=== PATIENT | female | born 1995 ===

== ENCOUNTER 2020-02-06 10:58 | Emergency (ER) | payer OTHER, BC, SELFPAY ==
[2020-02-06 11:00] VITALS: BP 172/94; PULSE 98; RESP 20; TEMP 36.4; O2SAT 97; BMI 37.0
--- NOTE | 2020-02-06 11:12 | ED_ITS ---
HPI - Abdominal Pain General Chief Complaint: Abdominal Pain Stated Complaint: cramping from food x1 day Time Seen by Provider: 02/06/20 10:58 Source: patient Mode of arrival: Ambulatory Limitations: no limitations History of Present Illness HPI narrative: 24F non smoker with non contributory medical history presents with worsening lower abdominal pain. She was eating a salad at work yesterday and cut the inside of her mouth and then swallowed a mouthful. She then examined her food and found a large piece of broken glass and then found out there was a glass item that broke in the kitchen and they thought they found all of the glass. She denies any vomiting but is feeling nauseated. She has sharp and stabbing lower abdominal and denies the passage of any blood in her stool. She denies any fever or chills. She denies any chance or COVID-19 She last ate last evening MD complaint: abdominal pain Onset (ago): day(s) Pain Consistency: intermittent Location: suprapubic Severity: severe Quality: cramping and stabbing Radiation: none Migration to: no migration Relieving factors: nothing Exacerbating factors: nothing Associated symptoms: nausea Review of Systems Constitutional Constitutional: Denies chills, Denies fatigue, Denies fever(s), Denies frequent falls, Denies lethargy and Denies weakness Eyes Eyes: Denies change in vision, Denies eye discharge, Denies irritation and Denies loss of vision ENT Ears, Nose, Mouth, and Throat: Denies change in voice, Denies dizziness, Denies neck pain, Denies sore throat and Denies throat swelling Cardiovascular Cardiovascular: Denies chest pain, Denies irregular heart rhythm, Denies lightheadedness, Denies palpitations, Denies dyspnea, Denies dyspnea on exertion and Denies orthopnea Respiratory Respiratory: Denies cough, Denies dyspnea, Denies dyspnea on exertion and Denies wheezing Gastrointestinal Gastrointestinal: Reports abdominal pain, Denies change in bowel habits, Denies diarrhea, Denies nausea and Denies vomiting Musculoskeletal Musculoskeletal: Denies neck pain and Denies numbness Integumentary/Breasts Skin/Breast: Denies pruritus, Denies erythema, Denies rash and Denies wounds Neurologic Neurologic: Denies behavioral changes, Denies confusion, Denies dizziness, Denies frequent falls, Denies loss of vision, Denies numbness and Denies weakness Psychiatric Psychiatric: Denies anxiety, Denies behavioral changes, Denies confusion, Denies depression, Denies homicidal ideation and Denies suicidal ideation Endocrine Endocrine: Denies fatigue, Denies flushing and Denies palpitations Hematologic/Lymphatic Hematologic/Lymphatic: Denies easy bruising Allergic/Immunologic Allergic/Immunologic: Denies urticaria, Denies throat swelling and Denies wheezing Patient History Social History Smoking Status: Never smoker Smoking Status: Never smoker alcohol intake frequency: 0-2 drinks per day Substance Use Type: does not use Exam Narrative Exam Narrative: GENERAL: [24] year old patient appears stated age. Well-nou rished, well-developed patient, in mild distress. Anxious, crying HEAD: Atraumatic. Normocephalic. EYES: Pupils equal round and reactive. Extraocular motions intact. No scleral icterus. No injection or drainage. ENT: Nose without bleeding, purulent drainage. Throat without erythema, tonsillar hypertrophy or exudate. Airway patent. NECK: Trachea midline. Non tender CARDIOVASCULAR: Regular rate and rhythm without murmurs, gallops, or rubs. RESPIRATORY: Clear to auscultation. Breath sounds equal bilaterally. No wheezes, rales, or rhonchi. GASTROINTESTINAL: Abdomen soft, mild tenderness, nondistended. EXTREMITIES: No edema or joint tenderness. BACK: Nontender without deformity or crepitance. No flank tenderness. NEURO: AOx3. SKIN: No rash or erythema of visible areas Initial Vital Signs Initial Vital Signs: Vital Signs Temperature 97.5 F L 02/06/20 11:00 Pulse Rate 98 H 02/06/20 11:00 Respiratory Rate 20 02/06/20 11:00 Blood Pressure 172/94 H 02/06/20 11:00 Pulse Oximetry 97 02/06/20 11:00 Course Orders Ordered: ED Orders 02/06/20 12:02 Basic Metabolic Panel Stat Complete Blood Count AUTO DIFF Stat 02/06/20 12:16 CT abdomen pelvis w con Stat Sodium Chloride (Normal Saline 0.9%) 1,000 mls @ 125 mls/hr IV CONT VAUGHN Last Admin: 02/06/20 12:50 Dose: 125 mls/hr Documented by: HOLDEN Consultations Consultation #1: early call to Dr. Cabral (surgery) to discuss imaging. He requests CT. Call to Radiology (no oral contrast, but IV will be helpful) Vital Signs Vital signs: Vital Signs - 8 hr 02/06/20 11:00 02/06/20 12:23 02/06/20 14:25 Temperature 97.5 F L Pulse Rate 98 H 86 Respiratory Rate 20 18 Blood Pressure 172/94 H 137/67 116/74 Pulse Oximetry 97 100 MDM - Abdominal Pain Lab Data Result diagrams: 02/06/20 12:02 02/06/20 12:02 Labs: Lab Results 02/06/20 02/06/20 Range/Units 12:02 12:02 WBC 10.0 (4.5-11.0) X10^3/uL RBC 4.77 (4.0-5.2) X10^6/uL Hgb 14.3 (12.0-16.0) g/dL Hct 42.2 (36-46) % MCV 88.5 (80-100) fL MCH 30.0 (26-34) PG MCHC 33.9 (30-36) % RDW 13.0 (11.6-14.8) % Plt Count 322 (150-400) X10^3/uL Neut % (Auto) 63.1 (50-75) % Lymph % (Auto) 31.0 (25-40) % [place] % (Auto) 4.4 (3-14) % Eos % (Auto) 0.9 L (2-4) % Baso % (Auto) 0.6 (0-2) % Neut # (Auto) 6300 (6993-9070) /uL Lymph # (Auto) 3100 (4928-2191) /uL [place] # (Auto) 400 (0-900) /uL Eos # (Auto) 100 (0-450) /uL Baso # (Auto) 100 (0-100) /uL Sodium 137 (137-145) mmol/L Potassium 4.1 (3.4-5.1) mmol/L Chloride 104 (98-107) mmol/L Carbon Dioxide 24 (22-32) mmol/L BUN 13 (7-17) mg/dL Creatinine 0.67 (0.52-1.04) mg/dL Estimated GFR > 60.0 (>60) mL/min BUN/Creatinine Ratio 19.4 (6-22) Glucose 85 (70-100) mg/dL Calcium 9.8 (8.4-10.2) mg/dL Point of care testing: Point of Care Testing Test Results Negative Imaging Data CT scan - abdomen/pelvis: Radiologist's Impression: Drake Polo 24 F [address] [address] [address] Scan Report Signed Patient: Drake PoloMR#: [id number] : 1995Acct:[id number] Age/Sex: 24 / FDate of Service: 02/06/20 Loc: ED Accession Number: [id number] Procedure: CT abdomen pelvis w con Ordering Provider: Pako Yuan D.O. PROCEDURE: CT ABDOMEN PELVIS W CON INDICATIONS: severe abdominal cramping, swallowed chard of glass TECHNIQUE: After the administration of intravenous contrast, 5 mm thick sections acquired from the diaphragm to the symphysis. 5 mm coronal and sagittal reformats were acquired. For radiation dose reduction, the following was used: automated exposure control, adjustment of mA and/or kV according to patient size. COMPARISON: None. FINDINGS: Image quality: Excellent. ABDOMEN: Lung bases: Lung bases are clear. Heart size is normal. Solid organs: Liver is normal in size and enhancement. Gallbladder appears normal. Biliary system is non dilated. Pancreas enhances normally. Spleen is normal in size and enhancement. No adrenal nodules. Kidneys demonstrate normal size and enha ncement, without hydronephrosis. Peritoneum and bowel: Bowel loops demonstrate normal wall thickness and caliber. No free fluid or air. Nodes and vessels: No retroperitoneal or mesenteric adenopathy by size criteria. Aorta and inferior vena cava are normal in size. Miscellaneous: No ventral hernias. PELVIS: Genitourinary: Bladder wall thickness is normal. There is a small amount of free fluid deep within the cul-de-sac adjacent to the right adnexa, potentially a manifestation of a recently ruptured ovarian cyst. Miscellaneous: No inguinal hernias or adenopathy. Within the sigmoid colon there is a 1.3 cm radiodensity seen on series 2 image 56. No adjacent inflammation is present, no free air found. Bones: No suspicious bony lesions. No vertebral body compression fractures. IMPRESSION: No sign of bowel laceration. No free air found. Note is made of a radiodensity measuring 1.3 cm within the sigmoid colon within the pelvis. A small amount of free fluid is seen deep within the lower pelvis, right slightly greater than left, potentially a manifestation of a ruptured ovarian cyst. Dictated by: Christ Adorno M.D. on 02/06/2020 at 12:19 Approved by: Christ Adorno M.D. on 02/06/2020 at 12:25 Discharge Plan Departure Patient Disposition: Home Clinical Impression: Foreign body, swallowed Qualifiers: Encounter type: initial encounter Qualified Code(s): T18.9XXA - Foreign body of alimentary tract, part unspecified, initial encounter Instructions: DI for Abdominal Pain-Adult Activity Restrictions/Additional Instructions: *You have been diagnosed with [swallowed foreign body, will likely pass within the next day or so] *What to do: *Take medications as directed *Follow up with your primary care provider in 2-3 days, call for an appointment. Let them know you were seen in the Emergency Department and that we ask that you be seen in follow up *Return to ER if you should have any new, worsening or concerning symptoms, such as [increasing pain, bright red blood per rectum, fever over 101 or other bothersome symptoms.]
[2020-02-06 12:09] LABS: Add Manual Diff / Slide Review NO; Basophils Absolute Auto 100 /uL (0-100); Basophils Percent Auto 0.6 % (0-2); Eosinophils Absolute Auto 100 /uL (0-450); Eosinophils Percent Auto 0.9 % (2-4); Hematocrit 42.2 % (36-46); Hemoglobin 14.3 g/dL (12.0-16.0); Lymphocytes Absolute Auto 3100 /uL (1100-4500); Mean Corpuscular HGB Conc 33.9 % (30-36); Mean Corpuscular Volume 88.5 fL (80-100); Monocytes Absolute Auto 400 /uL (0-900); Monocytes Percent Auto 4.4 % (3-14); Neutrophils Absolute Auto 6300 /uL (1500-7000); Neutrophils Percent Auto 63.1 % (50-75); Platelet Count 322 X10^3/uL (150-400); Red Blood Cell Count 4.77 X10^6/uL (4.0-5.2)
--- NOTE | 2020-02-06 12:16 | DI.CT.S_ITS ---
PROCEDURE: CT ABDOMEN PELVIS W CON INDICATIONS: severe abdominal cramping, swallowed chard of glass TECHNIQUE: After the administration of intravenous contrast, 5 mm thick sections acquired from the diaphragm to the symphysis. 5 mm coronal and sagittal reformats were acquired. For radiation dose reduction, the following was used: automated exposure control, adjustment of mA and/or kV according to patient size. COMPARISON: None. FINDINGS: Image quality: Excellent. ABDOMEN: Lung bases: Lung bases are clear. Heart size is normal. Solid organs: Liver is normal in size and enhancement. Gallbladder appears normal. Biliary system is non dilated. Pancreas enhances normally. Spleen is normal in size and enhancement. No adrenal nodules. Kidneys demonstrate normal size and enhancement, without hydronephrosis. Peritoneum and bowel: Bowel loops demonstrate normal wall thickness and caliber. No free fluid or air. Nodes and vessels: No retroperitoneal or mesenteric adenopathy by size criteria. Aorta and inferior vena cava are normal in size. Miscellaneous: No ventral hernias. PELVIS: Genitourinary: Bladder wall thickness is normal. There is a small amount of free fluid deep within the cul-de-sac adjacent to the right adnexa, potentially a manifestation of a recently ruptured ovarian cyst. Miscellaneous: No inguinal hernias or adenopathy. Within the sigmoid colon there is a 1.3 cm radiodensity seen on series 2 image 56. No adjacent inflammation is present, no free air found. Bones: No suspicious bony lesions. No vertebral body compression fractures. IMPRESSION: No sign of bowel laceration. No free air found. Note is made of a radiodensity measuring 1.3 cm within the sigmoid colon within the pelvis. A small amount of free fluid is seen deep within the lower pelvis, right slightly greater than left, potentially a manifestation of a ruptured ovarian cyst. Dictated by: Christ Adorno M.D. on 02/06/2020 at 12:19 Approved by: Christ Adorno M.D. on 02/06/2020 at 12:25
[2020-02-06 12:19] LABS: BUN Creatinine Ratio 19.4 (6-22); Blood Urea Nitrogen 13 mg/dL (7-17); Calcium 9.8 mg/dL (8.4-10.2); Carbon Dioxide 24 mmol/L (22-32); Chloride 104 mmol/L (98-107); Estimated Glomerular Filt Rate > 60.0 mL/min (>60); Glucose 85 mg/dL (70-100); HEMOLYSIS < 15 (0-50); Potassium 4.1 mmol/L (3.4-5.1); Sodium 137 mmol/L (137-145)
[2020-02-06 12:23] VITALS: BP 137/67
[2020-02-06] MEDS: SODIUM CHLORIDE 0.9% 1,000 ML 125 ML IV (12:50)
[2020-02-06 14:25] VITALS: BP 116/74; PULSE 86; RESP 18; O2SAT 100
== END 2020-02-06 14:30 | disposition home or self-care (01) ==
PROVIDERS: Emergency Provider Emergency Medicine
DX: T18.9XXA Foreign body of alimentary tract, part unspecified, initial encounter (principal)
CPT/HCPCS: 36415; 74177; 80048; 81025; 85025; 96360; 96361; 99284; Q9967